=== PATIENT | female | born 1985 | race Caucasian/White ===

== ENCOUNTER 2016-10-23 09:29 | Emergency (ER) | payer SELFPAY ==
[2016-10-23 09:40] VITALS: BP 115/80
[2016-10-23 11:23] LABS: BASO % 0 % (0-3); EOS # 0.1 x10^3/uL (0.0-0.7); EOS % 1 % (0-3); HEMATOCRIT 36.2 % (36.0-47.0); HEMOGLOBIN 11.9 g/dL (12.0-15.5); LYMPH # 2.5 x10^3/uL (1.0-4.8); LYMPH % 14 % (24-48); MEAN CORPUSCULAR HEMOGLOBIN 29 pg (25-35); MEAN CORPUSCULAR HGB CONC 33 g/dL (31-37); MEAN CORPUSCULAR VOLUME 87 fL (79-100); MONO # 1.2 x10^3/uL (0.0-1.1); MONO % 7 % (0-9); NEUT # 14.1 x10^3uL (1.8-7.7); NEUT % 79 % (31-73); PLATELET COUNT 177 x10^3/uL (140-400); RED BLOOD COUNT 4.17 x10^6/uL (3.50-5.40); RED CELL DISTRIBUTION WIDTH 13.6 % (11.5-14.5); WHITE BLOOD COUNT 17.9 x10^3/uL (4.0-11.0)
[2016-10-23 11:35] LABS: ALBUMIN 2.4 g/dL (3.4-5.0); ALBUMIN/GLOBULIN RATIO 0.5 (1.0-1.7); C REACTIVE PROTEIN 95.4 mg/L (0-3.3); CALCIUM 8.4 mg/dL (8.5-10.1); CREATININE 0.6 mg/dL (0.6-1.0); GFR 117.4; POTASSIUM 3.3 mmol/L (3.5-5.1); TOTAL BILIRUBIN 0.6 mg/dL (0.2-1.0); TOTAL PROTEIN 6.9 g/dL (6.4-8.2)
--- NOTE | 2016-10-23 11:41 | ED.ADGEN ---
Adult General Chief Complaint Chief Complaint Redness, swelling left leg HPI HPI Patient is a 31-year-old female denies history of MRSA who presents with redness , swelling to anterior right knee and leg extending to the medial thigh. Redness and swelling started 2 days ago. Patient denies any type of injury. Patient reports pain and tenderness. Denies nausea vomiting fever and sweats. No other acute symptoms or complaints. Patient is not diabetic. Patient had light menstrual period approximately 4 weeks ago. Review of Systems Review of Systems Review of symptoms as per history of present illness. All other review symptoms are negative. Current Medications Current Medications Current Medications Medications (Trade) Dose Ordered Sig/Nan Start Time Stop Time Status Last Admin Dose Admin Acetaminophen 1000 mg 1,000 mg 1X ONCE 10/23/16 11:30 10/23/16 11:31 UNV Clindamycin Phosphate (Cleocin 600 Mg Premix) 50 ml @ 100 mls/hr 1X ONCE 10/23/16 11:30 10/23/16 11:59 UNV Allergies Allergies Allergies Coded Allergies Type Severity Reaction Last Updated Verified No Known Drug Allergies 10/23/16 No Physical Exam Physical Exam Constitutional: Well developed, well nourished, unkempt, poor personal hygiene. HENT: Normocephalic, atraumatic, bilateral external ears normal, oropharynx moist, no oral exudates, nose normal. Eyes: PERRLA, EOMI. Neck: Normal range of motion. Cardiovascular:Heart rate regular rhythm, no murmur. Lungs & Thorax: Bilateral breath sounds clear to auscultation. Skin: Left lower extremity, bright red rash with swelling extending from anterior proximal calf, around the to anterior mid thigh. No calf tenderness. No indurations, fluctuance or wheezing. Back: No tenderness, no CVA tenderness. Extremities: Knee, range of motion intact, does not feel hot or inflamed. Neurologic: Alert and oriented X 3, normal motor function, normal sensory function, no focal deficits noted. Psychologic: Affect normal, judgement normal, mood normal. Current Patient Data Lab Results Laboratory Tests Test 10/23/16 11:11 White Blood Count 17.9x10^3/uL (4.0-11.0) H Red Blood Count 4.17x10^6/uL (3.50-5.40) Hemoglobin 11.9g/dL (12.0-15.5) L Hematocrit 36.2% (36.0-47.0) Mean Corpuscular Volume 87fL (79-100) Mean Corpuscular Hemoglobin 29pg (25-35) Mean Corpuscular Hemoglobin Concent 33g/dL (31-37) Red Cell Distribution Width 13.6% (11.5-14.5) Platelet Count 177x10^3/uL (140-400) Neutrophils (%) (Auto) 79% (31-73) H Lymphocytes (%) (Auto) 14% (24-48) L Monocytes (%) (Auto) 7% (0-9) Eosinophils (%) (Auto) 1% (0-3) Basophils (%) (Auto) 0% (0-3) Neutrophils # (Auto) 14.1x10^3uL (1.8-7.7) H Lymphocytes # (Auto) 2.5x10^3/uL (1.0-4.8) Monocytes # (Auto) 1.2x10^3/uL (0.0-1.1) H Eosinophils # (Auto) 0.1x10^3/uL (0.0-0.7) Basophils # (Auto) 0.0x10^3/uL (0.0-0.2) Platelet Estimate Pending EKG EKG [] Radiology/Procedures Radiology/Procedures [] Impressions: Cellulitis of left lower extremity without joint involvement. Course & Med Decision Making Course & Med Decision Making Pertinent Labs and Imaging studies reviewed. (See chart for details) [Rashes consistent with erysipelas. IV clindamycin given. Patient declines admission prefers to close follow-up tomorrow in the emergency department. Reviewed the importance of patient compliance with medication and leg elevation with patient at home. She agrees to discharge plan including follow-up tomorrow. She verbalizes instructions to return to the ED sooner should symptoms worsen.] Final Impression Final Impression [#1 left leg cellulitis] Problems: Dragon Disclaimer Dragon Disclaimer This electronic medical record was generated, in whole or in part, using a voice recognition dictation system. JOAQUIN SETH DO Oct 23, 2016 11:29
[2016-10-23] MEDS ORDERED: CLINDAMYCIN 600MG PREMIX 50 ML IV ONE (12:00)
[2016-10-23] MEDS ORDERED: ACETAMINOPHEN 500 MG TABLET PO ONE (12:00)
[2016-10-23 12:57] LABS: % BANDS 6 % (0-9); % EOS 1 % (0-5); % LYMPHS 25 % (24-48); % MONOS 2 % (0-10); % SEGS 66 % (35-66); PLT ESTIMATE ADEQUATE (ADEQUATE); POLYCHROMASIA PRESENT
== END 2016-10-23 12:20 | disposition home or self-care (01) ==
LOC: ER 09:35
DX: L03.116 Cellulitis of left lower limb (principal); A46 Erysipelas
CPT/HCPCS: 36415; 80053; 84702; 85007; 85027; 86140; 96365; 99284; J3490

== ENCOUNTER 2016-10-31 15:55 | Emergency (ER) | payer SELFPAY ==
[2016-10-31] MEDS ORDERED: IV NORMAL SALINE 1,000ML 1,000 ML IV SCH (16:22)
[2016-10-31] MEDS ORDERED: VANCOMYCIN PER PHARMACY MC ONE (16:30)
--- NOTE | 2016-10-31 16:37 | PHYS DOC ---
General Chief Complaint: CELLULITIS Stated Complaint: Lt. Leg Pain/Swelling Time Seen by MD: 16:10 Source: patient, old records Exam Limitations: no limitations Problems: (WYATT CLEMENTS DO) Time Seen by MD: 18:15 Problems: (BETTINA LAURENT MD) History of Present Illness Initial Comments Pt is 31/F to ED for left leg pain/swell. Pt was seen [facility] ED on 10/23 with two day history atraumatic left anterior knee/ medial thigh redness. During that visit pt urine +, pt not sure but thinks her LMP "two mos ago". Pt has not yet seen OB for initial OB appointment. Pt was diagnosed cellulitis, received IV clindamycin that day as well as prescription. Pt states that her leg symptoms began to resolve about two days after starting antibiotics (pt filled [facility]inda rx 10/24 states no missed doses). However, past several days pain/swelling/redness worsened, pt returned to ED has not seen primary care. Subjective temps, malaise, fatigue, no cp/sob/n/v/ numbness, tingling, weakness, or radiating sx. Pain is moderate, pt states itches as well. Td is UTD Pt uncertain whether originally leg swelling or skin changes arose initially. RN who cared for pt last week notes that LLE exponentially worse today than one week ago. ED VS: afebrile, 103 bpm, 132/89 Onset: last week Severity: severe Pain/Injury Location: left leg, left knee, left foot, left ankle Method of Injury: unknown Modifying Factors: worse with jarring, worse with movement, improves with rest (WYATT CLEMENTS DO) Allergies: Coded Allergies: No Known Drug Allergies (Unverified , 10/23/16) Past Medical History Medical History: no pertinent history Surgical History: noncontributory (CS) (WYATT CLEMENTS DO) Social History Smoker: non-smoker Alcohol: none Drugs: other (admits to IVDU methamphetamine in past denies recent use) (WYATT CLEMENTS DO) Review of Systems Constitutional: see HPI Respiratory: denies cough, denies shortness of breath, denies wheezing Cardiovascular: denies chest pain, denies palpitations, denies syncope Gastrointestinal: denies abdominal pain, denies diarrhea, denies nausea, denies vomiting Musculoskeletal: see HPI Skin: see HPI Psychiatric/Neurological: denies headache, denies numbness, denies paresthesia (WYATT CLEMENTS DO) Physical Exam General Appearance: no apparent distress HEENT: PERRL/EOMI, normal ENT inspection (very poor dentition), pharynx normal Neck: non-tender, supple Cardiovascular/Respiratory: normal peripheral pulses, no respiratory distress, tachycardia Back: no CVA tenderness, no vertebral tenderness Knees: left knee other (2cm diam draining abscess at tibial tuberosity, generalized swelling/erythema. Ligs/tendons intact, no bony TTP, no pain active /passive ROM) Ankles: left ankle other (L leg/ankle/foot with moderate/severe swelling, erythema, sloughing and weeping no purulence noted other than knee as above) Feet: left foot other (red/swelling) Neurologic/Tendon: normal sensation, normal motor functions, normal tendon functions, responds to pain, no evidence tendon injury Psychiatric: alert, oriented x 3 Skin: rash (LLE as above) (WYATT CLEMENTS DO) Orders, Labs, Meds Vancomycin given, wound C/S as well as labs collected. 1L NS IV bolus, hydroxyzine 25mg PO, US ordered to evaluate abscess and determine whether DVT present (risks are tobacco, IVDU, , OCP history, sedentary). (WYATT CLEMENTS DO) Orders, Labs, Meds 2100 patient checked out to me by prior emergency physician pending labs and ultrasound. Briefly, the patient been seen here last week for cellulitis was offered admission. She declined at that time. He is uncertain whether she was compliant with her anabolic prescription. However, she presents today with increasing redness swelling and pain in left lower leg. She does have a history of IV drug abuse with methamphetamine. She also states that she thinks she is 20 weeks . On exam by this physician, the left lower leg is extremely swollen, 3+ edema, red, hot, with vesicles and weeping over the posterior inferior portion. There is also appears to be a small pustule over the anterior aspect of the left infrapatellar region. Ultrasound showed no evidence of DVT. There was approximately 3.5 x 3.5 x 1 cm abscess located in the left anterior infrapatellar region subcutaneously. White count was elevated and CRP was markedly elevated as well. I discussed with the patient that given the magnitude of her swelling wasn't bleeding, as well as the presence of abscess and history of IV drug abuse, she would require admission. She reluctantly is agreeable this time, initially having said she would go home. Nursing staff was unable to obtain IV access. I discussed with the patient need for central line and she agreed with the same. She stated that she had not ever shot up in the subclavian area, but later in discussion she says other people tried to do so for her. Following several attempts, including one in which blood return was obtained through the syringe but not after line placement, a right subclavian central line was successfully placed by this physician. Patient good blood return through the medial and proximal port, but some resistance with the distal port which may be due to placement up against the valve. I did ask nursing staff to be sure to aspirate through the ports to make sure the ani was appropriately prior to infusion of any medications, and possibly avoid the distal port as possible. Post procedure chest x-ray showed central line with adequate placement and no hemothorax or pneumothorax. Following fentanyl, I performed incision and drainage the left knee abscess. The abscess is relatively superficial but is extremely extensive, extending up towards the area of the patella. The abscess cavity is well circumscribed, however, there is no involvement of the knee joint itself as best I can palpate or visualize. Cavity was started with a forceps and finger and loculations broken. There is a copious amount necrotic debris removed. The cavity was copiously irrigated and packed with quarter-inch gauze. Patient tolerated the procedure well. There is some body fluid splashed on the physician skin. There is no open skin breaks or lesions. I did ask patient if she had been tested for HIV and hepatitis. She said she had but didn't know when, and was agreeable to current testing. As noted, the patient would require admission. I did discuss the case with Dr. Banuelos, felt the patient was best served at [facility]. I subsequently discussed the case with Dr. Hernandez at [facility] he graciously accepted the patient for admission. We did perform chest x-ray here given the history of . The patient did sign a waiver was appropriate shielded. I do believe the risks of a single episode of radiation exposure are outweighed by the benefits of ensuring appropriate line placement and no complications. She did receive clindamycin here which is a class B antibiotic, and vancomycin which is class C. Again, given the severity of infection, I think the vancomycin was warranted and the benefits to the patient at this time outweigh the risks to the . Patient and her mother, who are now here, amenable to admission. I did discuss with mother the patient's history of IV drug abuse, which she is aware. Patient's request we do not inform the mother of the and I have not done so. It is of interest to note that as we are undressing the patient preparation for central line, small baggy containing with the patient visits his crystal meth was found in her clothing. This was turned over to security. The patient is resting at this time awaiting transfer to [facility] for further definitive care. (BETTINA LAURENT MD) Departure Disposition: 02 XFER SHT-TRM HOSP Diagnosis: cellulitis Condition: STABLE WYATT CLEMENTS DO Oct 31, 2016 16:37 BETTINA LAURENT MD Oct 31, 2016 21:25
[2016-10-31] MEDS ORDERED: VANCOMYCIN 2 GM in IV NORMAL SALINE 500ML 500 ML IV ONE (17:00)
[2016-10-31] MEDS ORDERED: HYDROXYZINE HCL 25 MG TABLET PO ONE (17:15)
[2016-10-31 17:40] LABS: BASO # 0.1 x10^3/uL (0.0-0.2); BASO % 1 % (0-3); EOS # 0.3 x10^3/uL (0.0-0.7); EOS % 2 % (0-3); HEMATOCRIT 33.2 % (36.0-47.0); LYMPH # 2.6 x10^3/uL (1.0-4.8); LYMPH % 14 % (24-48); MEAN CORPUSCULAR HEMOGLOBIN 28 pg (25-35); MEAN CORPUSCULAR HGB CONC 33 g/dL (31-37); MEAN CORPUSCULAR VOLUME 85 fL (79-100); MONO # 1.1 x10^3/uL (0.0-1.1); MONO % 6 % (0-9); NEUT # 14.6 x10^3uL (1.8-7.7); NEUT % 78 % (31-73); PLATELET COUNT 283 x10^3/uL (140-400); RED BLOOD COUNT 3.91 x10^6/uL (3.50-5.40); RED CELL DISTRIBUTION WIDTH 13.8 % (11.5-14.5); WHITE BLOOD COUNT 18.7 x10^3/uL (4.0-11.0)
[2016-10-31 17:47] LABS: C REACTIVE PROTEIN 47.2 mg/L (0-3.3); CALCIUM 8.4 mg/dL (8.5-10.1); CREATININE 0.6 mg/dL (0.6-1.0); GFR 117.4; POTASSIUM 3.7 mmol/L (3.5-5.1)
[2016-10-31] MEDS ORDERED: DIPHENHYDRAMINE HCL 25 MG CAPSULE PO ONE (18:15)
--- NOTE | 2016-10-31 18:27 | RAD ---
PROCEDURE Left lower extremity venous Doppler. HISTORY Left lower extremity redness, swelling. COMPARISON None. FINDINGS The veins of left lower extremity were interrogated under grayscale, color Doppler, and spectral Doppler modes. Veins are compressible and demonstrate normal Doppler flow dynamics. There is no no evidence of deep venous thrombosis. IMPRESSION No evidence of left lower extremity deep venous thrombosis. Electronically signed by: Jorge Pandya MD (Oct 31, 2016 18:26:05)
--- NOTE | 2016-10-31 18:29 | RAD ---
PROCEDURE Left lower extremity nonvascular soft tissue ultrasound. HISTORY Cellulitis, IV drug user. Purulent blisters. TECHNIQUE FINDINGS Grayscale imaging was performed of left lower extremity. In the anterior left knee, there is irregular fluid collection with debris present. This fluid collection measures 3.7 x 3.5 x 0.9 centimeters and is favored to represent abscess. Additional more diffuse interstitial edema and fluid is seen involving the left foot. IMPRESSION 1. Abscess involving the left anterior knee. 2. Large amount of interstitial edema involving the foot. Electronically signed by: Jorge Pandya MD (Oct 31, 2016 18:28:32)
[2016-10-31 19:06] LABS: SEDIMENTATION RATE 75 (0-25)
[2016-10-31 19:11] LABS: % BANDS 2 % (0-9); % EOS 1 % (0-5); % LYMPHS 11 % (24-48); % MONOS 7 % (0-10); % SEGS 79 % (35-66)
[2016-10-31 19:12] LABS: PLT ESTIMATE ADEQUATE (ADEQUATE)
[2016-10-31] MEDS ORDERED: IV NORMAL SALINE 500ML 500 ML ONE (19:35)
[2016-10-31] MEDS ORDERED: VANCOMYCIN 1 GM VIAL. ONE (19:35)
[2016-10-31] MEDS ORDERED: CLINDAMYCIN 900MG PREMIX 50 ML IV ONE (20:00)
[2016-10-31] MEDS ORDERED: FENTANYL PF 100 MCG/2 ML VIAL. IV ONE (20:15)
[2016-10-31 21:25] VITALS: BP 124/89
[2016-10-31 22:04] LABS: AMPHETAMINE/METHAMPHETAMINE POS (NEG); BARBITURATES NEG (NEG); BENZODIAZEPINES NEG (NEG); CANNABINOIDS NEG (NEG); COCAINE NEG (NEG); METHADONE NEG (NEG); OPIATES NEG (NEG); PHENCYCLIDINE NEG (NEG)
[2016-10-31 22:21] LABS: BILIRUBIN,URINE NEG (NEG); CLARITY,URINE CLOUDY; COLOR,URINE YELLOW; GLUCOSE,URINE NEG (NEG); NITRITE,URINE NEG (NEG); UROBILINOGEN,URINE 0.2 mg/dL (0.2 mg/dL)
[2016-10-31 22:22] LABS: BACTERIA,URINE FEW /HPF (0-FEW); SQUAMOUS EPITHELIAL CELL,UR MANY /LPF
--- NOTE | 2016-11-01 07:46 | RAD ---
Portable chest, 10/31/2016: History: Check line placement Comparison is made to a study from 09/25/2008. A right subclavian central venous catheter extends into the mid right atrium. The heart size and pulmonary vascularity are normal. No pulmonary infiltrates are seen. There is no evidence of pleural fluid or pneumothorax. IMPRESSION: 1. The right subclavian central venous catheter extends into the right atrium. 2. No acute cardiopulmonary abnormality is detected.
[2016-11-01 23:12] LABS: HCV ANTIBODY <0.1 s/co ratio (0.0-0.9); HEP A IGM ABDY Negative (Negative)
== END 2016-10-31 22:04 | disposition short-term general hospital (02) ==
LOC: ER 15:55
DX: O26.892 Other specified pregnancy related conditions, second trimester (principal); L03.116 Cellulitis of left lower limb
CPT/HCPCS: 10060; 36415; 36556; 71010; 76882; 80048; 80074; 80305; 81001; 83605; 85007; 85027; 85651; 86140; 86703; 87040; 87070; 87086; 87186; 93971; 96361; 96365; 96366; 96368; 96375; 99285; J3010; J3370; J3490; J7040; Q0163; G0481; J7030